=== PATIENT | female | born 1975 | race Hispanic/Latino ===

== ENCOUNTER 2016-08-11 10:50 | Emergency (ER) | payer OTHER ==
[~2016-08-11 10:50] MED LIST: Donnatal Elixir 16.2 MG/5 ML UDCUP ONE; Sodium Chloride 0.9% 100 ML BAG ONE
[2016-08-11] MEDS ORDERED: Ketorolac Tromethamine 30 MG/ML VIAL ONE (11:15)
[2016-08-11] MEDS ORDERED: Ondansetron HCl/PF 4 MG/2 ML Vial ONE (11:15)
[2016-08-11] MEDS ORDERED: Lidocaine Viscous Sol 2% 15 ml UD Cup ONE (11:16)
[2016-08-11] MEDS ORDERED: Donnatal Elixir 16.2 MG/5 ML UDCUP ONE (11:16)
[2016-08-11] MEDS ORDERED: Mag-Al Plus 1200 MG/1200 MG/120 MG/30 ML UDCUP ONE (11:16)
[2016-08-11 11:30] LABS: #Basophils 0.1 thou/uL (0.0-0.2); #Lymphocytes 1.8 thou/uL (1.20-3.40); #Monocytes 0.4 thou/uL (0.11-0.59); %Basophils 1.1 % (0.0-1.0); %Eosinophils 0.4 % (0.0-10.0); %Lymphocytes 28.6 % (21.0-51.0); %Monocytes 6.7 % (0.0-10.0); %Neutrophils 63.2 % (42.0-75.0); BHCG - Serum NEGATIVE (NEGATIVE); Hemoglobin 12.8 g/dL (12.0-16.0); Mean Corpuscular HGB CONC 33.4 g/dL (32.0-36.0); Mean Corpuscular Hemoglobin 29.8 pg (27.0-31.0); Mean Platelet Volume 9.3 fL (7.4-10.4); Platelet Count 244 thou/uL (130-400); White Blood Cell (WBC) Count 6.3 thou/uL (4.8-10.8)
[2016-08-11 11:31] LABS: Pregs Control Background? CLEAR/WHITE (CLR/WHITE); Pregs Control Bar Appear? YES (CONTROL BAR)
[2016-08-11 11:40] LABS: ALT (SGPT) 24 U/L (0-55); AST (SGOT) 28 U/L (5-34); Alkaline Phosphatase 71 U/L (40-150); Amylase 55 U/L (25-125); Anion Gap 19 mmol/L (10-20); BUN (Urea Nitrogen) 12 mg/dL (7.0-18.7); Bilirubin, Total 0.3 mg/dL (0.2-1.2); CK (CPK) 238 U/L (29-168); Calc. Creatinine Clearance 0 mL/min (70-130); Calcium 8.6 mg/dL (7.8-10.44); Carbon Dioxide 19 mmol/L (22-29); Chloride 105 mmol/L (98-107); Estimated GFR-MDRD Greater than 90; Glucose 134 mg/dL (70-105); Lipase 41 U/L (8-78); Potassium 3.6 mmol/L (3.5-5.1); Sodium 139 mmol/L (136-145)
--- NOTE | 2016-08-11 12:00 | RAD ---
PORTABLE CHEST: DATE: 08/11/16. PROVIDED CLINICAL HISTORY: Epigastric pain. FINDINGS: Cardiac and mediastinal silhouette is within normal limits. Lungs appear clear. No pleural fluid o r pneumothorax apparent. IMPRESSION: No evidence for an acute cardiopulmonary process. POS: [facility]
[2016-08-11 12:17] LABS: Bilirubin Negative (Negative); Blood, Urine Moderate (Negative); Clarity Slightly Cloudy (Clear); Glucose, Urine (Dipstick) Negative (Negative); Leukocyte Negative (Negative); Nitrite Negative (Negative); Protein, Urine (Dipstick) Negative (Neg-Trace); Renal Epithelial 0-3 HPF (0-3); Specific Gravity, Urine 1.025 (1.005-1.030); Transitional Epithelial 0-3 HPF (0-3); Urobilinogen 0.2 mg/dL (0.2-1.0)
[2016-08-11 12:18] LABS: Bacteria/HPF 2+ HPF (None Seen)
[2016-08-11] MEDS ORDERED: Morphine Sulfate 2 MG/ML SYRINGE ONE (12:42)
[2016-08-11] MEDS ORDERED: Lorazepam 2 MG/ML VIAL ONE (13:04)
[2016-08-11] MEDS ORDERED: Promethazine HCl 25 MG/ML VIAL ONE (13:42)
[2016-08-11] MEDS ORDERED: Iopamidol 370 76% 100 ML VIAL ONE (13:43)
--- NOTE | 2016-08-11 15:00 | CT ---
CT ABDOMEN AND PELVIS WITH IV CONTRAST: Date: 08-11-16 Provided Clinical History: Abdominal pain. FINDINGS: The visualized lung bases are free of significant opacity. The solid abdominal organs demonstrate an unremarkable CT appearance. There are multiple loops of small bowel present within the central mid abdomen that demonstrate a hy perdense appearance to the wong and demonstrate surrounding fluid density and haziness to the mesen teric fat. There is a focal area of narrowing seen involving the small bowel in the central aspects of the abdomen on Image 44 of the axial series, likely representing a site of internal hernia and re sultant close loop obstruction. Associated bowel ischemia may be present. There is free intraperitoneal fluid noted to a mild to moderate degree. There is no mark pneumotosi s or melissa venous gas apparent. There is no evidence for pneumoperitoneum. The osseous structures demonstrate no concerning osteoblastic or osteolytic lesions. IMPRESSION: Findings suspicious for a closed loop small bowel obstruction such as internal hernia. Associated melissa wel ischemia is suspected. Surgical consultation is recommended. Results and recommendations discuss ed with Dr. Mayorga via telephone 2:43 p.m. 08-11-16. Code CR POS: [facility]
[2016-08-11 15:06] LABS: CKMB 4.4 ng/mL (0-6.6)
[2016-08-11] MEDS ORDERED: metroNIDAZOLE 500 MG/100 ML BAG ONE (15:09)
[2016-08-11] MEDS ORDERED: Piperacillin/Tazobactam 4.5 GM VIAL ONE (15:09)
== END 2016-08-11 15:49 | disposition short-term general hospital (02) ==
LOC: MADERS 10:50
DX: K29.70 Gastritis, unspecified, without bleeding (principal); K56.60 Unspecified intestinal obstruction; N39.0 Urinary tract infection, site not specified; Z79.899 Other long term (current) drug therapy
CPT/HCPCS: 36415; 71010; 74177; 80053; 81001; 82150; 82550; 82553; 83690; 84484; 84703; 85025; 87077; 87086; J1885; J2060; J2270; J2405; J2543; J2550; J7050